=== PATIENT | female | born 1960 | race Caucasian/White ===

== ENCOUNTER 2018-09-08 11:24 | Emergency (ER) | payer MEDICAID ==
[2018-09-08] MEDS ORDERED: ONDANSETRON HCL IV 4 MG/2 ML VIAL IV ONE (11:39)
[2018-09-08] MEDS ORDERED: SODIUM CHLORIDE 0.9% 500 ML IV ONE (11:39)
[2018-09-08] MEDS ORDERED: 0.9 % SODIUM CHLORIDE 1,000 ML BAG IV ONE (11:48)
--- NOTE | 2018-09-08 11:48 | Emergency Department Record ---
History of Present Illness - General Chief complaint: Nausea, Vomiting, Diarrhea Stated complaint: NAUSEA,CONSTIPATION Time Seen by Provider: 09/08/18 11:32 Source: Patient Mode of Arrival: Ambulatory - History of Present Illness Initial comments: The patient states that she has had about 2 weeks of heartburn, bloating, nausea , and RUQ/epig abdominal pain. She has had vomiting over these 2 weeks but is not just having dry heaves as she is not eating and drinking less. Her urine is strong and has decreased in amount as well. She has chills without fevers, no URI symptoms and no urinary symptoms. These symptoms today are the same as she has had over the past 2 weeks but are more severe. She also feels constipated as her last BM was 4 days ago. Her primary care [employer]ICAL INSTRUCTOR Yamilet ordered Abdominal ultrasound done on 08-14-18 which was "unremarkable abdomen ultrasound without evidence of cholelithiasis or acute cholecystitis." Her hepatobiliary nuc med scan done on 08-21-18 showed "no evidence of cytic or common duct obstruction. Relatively LOW ejection fraction of 25%." She has been expecting a referral to a surgeon. MD complaint: Abdominal pain Onset/Timin -: Week(s) Description of Vomiting: Watery Associated Abdominal Pain: Yes Location: RUQ, Epigastric Radiation: Epigastric, RUQ Severity: Moderate Severity scale (1-10): 7 Quality: Aching, Sharp Consistency: Constant Improves with: None Worsens with: None Associated Symptoms: Denies other symptoms - Related Data Home Medications Medication Instructions Recorded Confirmed Last Taken Cyclobenzaprine HCl [Flexeril] 10 mg PO TID 09/08/18 09/08/18 09/08/18 Previous Rx's Medication Instructions Recorded Ondansetron [Zofran Odt] 4 mg PO Q8H PRN #7 tab.rapdis 09/08/18 Allergies Allergy/AdvReac Type Severity Reaction Status Date / Time cephalexin monohydrate Allergy Intermediate HIVES Verified 09/08/18 11:34 [From Keflex] Penicillins Allergy Intermediate HIVES Verified 09/08/18 11:34 tetanus immune globulin Allergy Intermediate SWELLING Verified 09/08/18 11:34 (GENERAL) Travel Screening - Travel/Exposure Within Last 30 Days Have you traveled within the last 30 days?: No Review of Systems Reviewed: No additional complaints except as noted below Constitutional: Reports: As per HPI. Denies: Chills, Fever, Malaise, Night sweats, Weakness, Weight change Eyes: Reports: As per HPI. Denies: Eye discharge, Eye pain, Photophobia, Vision change ENT: Reports: As per HPI. Denies: Congestion, Dental pain, Ear pain, Epistaxis , Hearing loss, Throat pain Respiratory: Reports: As per HPI. Denies: Cough, Dyspnea, Hemoptysis, Stridor, Wheezes Cardiovascular: Reports: As per HPI. Denies: Arrhythmia, Chest pain, Dyspnea on exertion, Edema, Murmurs, Orthopnea, Palpitations, Paroxysmal nocturnal dyspnea, Rheumatic Fever, Syncope Endocrine: Reports: As per HPI. Denies: Fatigue, Heat or cold intolerance, Polydipsia, Polyuria Gastrointestinal: Reports: As per HPI. Denies: Abdominal pain, Constipation, Diarrhea, Hematemesis, Hematochezia, Melena, Nausea, Vomiting Genitourinary: Reports: As per HPI. Denies: Abnormal menses, Discharge, Dyspareunia, Dysuria, Frequency, Hematuria, Incontinence, Retention, Urgency Musculoskeletal: Reports: As per HPI. Denies: Arthralgia, Back pain, Gout, Joint swelling, Myalgia, Neck pain Skin: Reports: As per HPI. Denies: Bruising, Change in color, Change in hair/ nails, Lesions, Pruritus, Rash Neurological: Reports: As per HPI. Denies: Abnormal gait, Confusion, Headache, Numbness, Paresthesias, Seizure, Tingling, Tremors, Vertigo, Weakness Psychiatric: Reports: As per HPI. Denies: Anxiety, Auditory hallucinations, Depression, Homicidal thoughts, Suicidal thoughts, Visual hallucinations Hematological/Lymphatic: Reports: As per HPI. Denies: Anemia, Blood Clots, Easy bleeding, Easy bruising, Swollen glands Past Medical History - SOCIAL HISTORY Smoking Status: Light tobacco smoker (<10/day) - RESPIRATORY Hx Respiratory Disorders: No - CARDIOVASCULAR Hx Cardio Disorders: Yes Hx Cardiac Cath: Yes Hx Heart Attack: Yes (1998) Hx Hypertension: Yes - NEURO Hx Neuro Disorders: Yes Hx Dizziness: Yes - GI Hx GI Disorders: No Hx Nausea/Vomiting: Yes - Hx Genitourinary Disorders: No - ENDOCRINE Hx Endocrine Disorders: No - MUSCULOSKELETAL Hx Musculoskeletal Disorders: Yes Hx Osteoporosis: Yes - PSYCH Hx Psych Problems: Yes Hx Depression: Yes - HEMATOLOGY/ONCOLOGY Hx Hematology/Oncology Disorders: No Hx Blood Transfusions: No Family Medical History Hx Cancer: Brother/Sister, Grandparents Hx Dementia: Grandparents Hx Depression: Father, Mother, Brother/Sister, Grandparents Hx Diabetes: Father Hx Heart Disease: Mother Hx HTN: Father, Mother, Brother/Sister, Grandparents Physical Exam - General General Appearance: Alert, Oriented x3, Cooperative, Mild distress - Head Head exam: Normal inspection - Eye Eye exam: Normal appearance, PERRL Pupils: Normal accommodation - ENT ENT exam: Normal exam, Mucous membranes moist, Normal external ear exam, Normal orophraynx, TM's normal bilaterally Ear exam: Normal external inspection. negative: External canal tenderness Nasal Exam: Normal inspection. negative: Discharge, Sinus tenderness Mouth exam: Normal external inspection, Tongue normal Teeth exam: Normal inspection. negative: Dental caries Throat exam: Normal inspection. negative: Tonsillar erythema, Tonsillar exudate - Neck Neck exam: Normal inspection, Full ROM. negative: Lymphadenopathy, Meningismus , Tenderness - Respiratory Respiratory exam: Normal lung sounds bilaterally. negative: Respiratory distress - Cardiovascular Cardiovascular Exam: Regular rate, Normal rhythm, Normal heart sounds - GI/Abdominal GI/Abdominal exam: Soft, Normal bowel sounds, Tenderness (RUQ and epigastric tenderness on palpation;). negative: Guarding, Rebound, Rigid - Rectal Rectal exam: Deferred - exam: Deferred - Extremities Extremities exam: Normal inspection, Full ROM, Normal capillary refill. negative: Calf tenderness, Pedal edema, Tenderness - Back Back exam: Reports: Normal inspection, Full ROM. Denies: Muscle spasm, Rash noted, Tenderness - Neurological Neurological exam: Alert, Normal gait, Oriented X3, Reflexes normal - Psychiatric Psychiatric exam: Normal affect, Normal mood - Skin Skin exam: Dry, Intact, Normal color, Warm Course Vital Signs 09/08/18 11:29 Temperature 98.0 F Pulse Rate 73 Respiratory 18 Rate Blood Pressure 145/84 Pulse Ox 98 - Reevaluation(s) Reevaluation #1: Spoke with PCP office who states the Dr. Osborn referral has been ordered but not processed. 09/08/18 11:57 09/08/18 13:[address] Osborn who requests patient to call his [place] office for an appointment to be seen tomorrow (Friday09-09-18) in his office. Reevaluation #2: Patient's discomfort has decreased from 5/10 to 3/10 and is at her level of the past 2 weeks. She is in agreement with going home and seeing Dr. Osborn in his office tomorrow. at the bedside agrees. 09/08/18 13:30 Medical Decision Making - Management Options MDM Management: Additional Work-up Planned (e.g. ADM/Transfer/OP Study) (See Dr. Osborn in his office tomorrow without fail.) - Data Complexity MDM Data: Labs Ordered and/or Reviewed, X-Ray Ordered and/or Reviewed ( Noncontrast CT Abd/Pelvis: ) - Lab Data Result diagrams: 09/08/18 11:37 09/08/18 11:37 Disposition Disposition: Discharge Clinical Impression: Colic, biliary Disposition: Home, Self-Care Condition: (1) Good Instructions: Biliary Colic (ED), Acute Nausea and Vomiting (ED) Additional Instructions: Clear liquids and push fluids. Call Dr. Osborn's office in [place] at [phone] for an appointment tomorrow in his [place] office. zofran as directed as needed for nausea. Prescriptions: Ondansetron [Zofran Odt] 4 mg PO Q8H PRN #7 tab.rapdis PRN Reason: Nausea/Vomiting Quality - Quality Measures Quality Measures: N/A - Blood Pressure Screening Does Patient Have Any of the Following: No Blood Pressure Classification: Pre-Hypertensive BP Reading Systolic Measurement: 145 Diastolic Measurement: 84 Screening for High Blood Pressure: < Pre-Hypertensive BP, F/U Documented > [ G8950] Pre-Hypertensive Follow-up Interventions: Follow-up with rescreen every year.
[2018-09-08 11:49] LABS: BASO % 0.6 % (0-6); GRAN % 61.5 % (47-80); HEMATOCRIT 41.9 % (35.0-47.0); HEMOGLOBIN 13.7 gm/dl (11.6-16.0); LYMPH % 26.9 % (16-45); MEAN CELL VOLUME 92.7 fl (81-97); MEAN CORPUSCULAR HEMOGLOBIN 30.3 pg (27-33); MEAN CORPUSCULAR HGB CONC 32.7 g/dl (32-36); MEAN PLATELET VOLUME 10.6 fl (7.4-10.4); PLATELET COUNT 274 K/uL (130-400); RED BLOOD COUNT 4.52 M/uL (3.80-5.40); RED CELL DISTRIBUTION WIDTH 13.2 % (11.5-14.5); WHITE BLOOD COUNT W/O DIFF 10.8 K/uL (4.2-12.2)
[2018-09-08 11:57] LABS: BILIRUBIN,TOTAL 0.7 mg/dL (0.2-1.0); CREATININE 1.1 mg/dL (0.5-0.9)
[2018-09-08] MEDS ORDERED: MAGNESIUM HYDROXIDE/AL HYDROX 30 ML, LIDOCAINE VISC 2% 15ML 15 ML PO ONE ×2 (12:01)
[2018-09-08 12:02] LABS: ALB/GLOB RATIO 1.7 (1.1-1.8); ALBUMIN 4.4 g/dL (4.0-5.0)
[2018-09-08 13:29] LABS: URINE APPEARANCE CLEAR; URINE BILIRUBIN NEGATIVE (NEGATIVE); URINE BLOOD TRACE-I (NEGATIVE); URINE COLOR YELLOW; URINE GLUCOSE (UA) NEGATIVE (NEGATIVE); URINE KETONE NEGATIVE (NEGATIVE); URINE LEUKOCYTE ESTERASE NEGATIVE (NEGATIVE); URINE NITRITE NEGATIVE (NEGATIVE); URINE PROTEIN NEGATIVE (NEGATIVE); URINE UROBILINOGEN 0.2 E.U./dL (0.20 - 1.00)
[2018-09-08 13:40] LABS: URINE EPITHELIAL CELLS 0 - 2 (FEW); URINE RBC 0 - 2 (NONE SEEN); URINE WBC 0 - 2 (0-2/hpf)
--- NOTE | 2018-09-10 15:06 | CT SCAN REPORT ---
EXAM: EMERGENCY CT OF THE ABDOMEN AND PELVIS WITHOUT CONTRAST HISTORY: EPIGASTRIC AND RIGHT UPPER QUADRANT PAIN FOR TWO WEEKS, NAUSEATED. TECHNIQUE: Axial CT scan of the abdomen and pelvis was performed without oral or IV contrast. Comparison: No prior CT abdomen and pelvis with which to compare. FINDINGS: No calcified gallstones seen within the gallbladder. No intrarenal calculi identified in either kidney. No hydronephrosis or hydroureter is seen with no definite ureteral calculus seen on either side and no bladder calculus evident. Evaluation of the bowel and viscera is extremely limited without oral or IV contrast. Given this limitation, no definite hepatic, splenic, adrenal, pancreatic, or renal mass identified. The uterus is tilted slightly towards the right. Mild diverticulosis left side of the colon, but no diverticulitis evident. The appendix is visualized and probably contains an appendicolith near the tip of the appendix, measuring about 1 cm in size, however, no additional to suggest acute appendicitis identified. No free intraperitoneal air or free intraperitoneal fluid evident. Very small periumbilical anterior abdominal wall hernia containing adipose tissue, but no bowel. There is a thoracolumbar levoscoliosis with some facet joint arthropathy in the lumbar spine. IMPRESSION: 1. THERE IS PROBABLY A CALCIFIED APPENDICOLITH PRESENT, BUT NO ADDITIONAL FINDINGS TO SUGGEST ACUTE APPENDICITIS EVIDENT. 2. NO DEFINITE URINARY TRACT CALCULI OR HYDRONEPHROSIS SEEN. 3. THE UTERUS IS TILTED TOWARDS THE RIGHT. 4. NO FREE AIR OR FREE FLUID EVIDENT. 5. THORACOLUMBAR LEVOSCOLIOSIS. JOB NUMBER: [id number] MTDD
== END 2018-09-08 13:45 | disposition home or self-care (01) ==
LOC: ER 11:24
DX: K80.50 Calculus of bile duct without cholangitis or cholecystitis without obstruction (principal); R11.0 Nausea; R19.7 Diarrhea, unspecified; R12 Heartburn; I10 Essential (primary) hypertension; I25.2 Old myocardial infarction; F17.210 Nicotine dependence, cigarettes, uncomplicated
CPT/HCPCS: 74176; 80053; 81001; 83690; 85025; 96361; 96374; 99284; J2405

== ENCOUNTER 2018-09-14 07:54 | Day surgery (SDC) | payer MEDICAID ==
[~2018-09-14 07:54] MED LIST: ACETAMINOPHEN 1,000 MG/100 ML BTL IV ONE; FAMOTIDINE 20MG TABLET PO ONE; MECLIZINE 25 MG TABLET PO ONE; METOCLOPRAMIDE 10 MG TABLET PO ONE
[2018-09-14] MEDS ORDERED: BUPIVACAINE 0.25% W/EPI MPF 30ML VIAL IVP ONE (07:55)
[2018-09-14] MEDS ORDERED: ROCURONIUM BROMIDE 50MG/5ML VIAL IV ONE (07:55)
[2018-09-14] MEDS ORDERED: MIDAZOLAM HCL 2MG/2ML VIAL IV ONE (07:55)
[2018-09-14] MEDS ORDERED: SUGAMMADEX SODIUM 200 MG/2 ML VIAL IV ONE (07:55)
[2018-09-14] MEDS ORDERED: FENTANYL PF 100MCG/2ML VIAL IV ONE (07:55)
[2018-09-14] MEDS ORDERED: PROPOFOL 10 MG/ML VIAL IV ONE (07:55)
[2018-09-14] MEDS ORDERED: ONDANSETRON HCL IV 4 MG/2 ML VIAL IVP ONE (07:55)
[2018-09-14] MEDS ORDERED: DEXAMETHASONE 4 MG/ML 1ML VIAL IVP ONE (07:55)
[2018-09-14] MEDS ORDERED: SUCCINYLCHOLINE 20 MG/ML 10ML IVP ONE (07:55)
[2018-09-14] MEDS ORDERED: LIDOCAINE 2% MDV (20MG/ML) 20ML VIAL IV ONE (07:55)
--- NOTE | 2018-09-15 15:29 | Operative Note ---
DATE OF SURGERY: 09/14/2018 Surgeon: Pancho Osborn DO PREOPERATIVE DIAGNOSIS: Symptomatic biliary dyskinesia. POSTOPERATIVE DIAGNOSIS: Symptomatic biliary dyskinesia. OPERATION: Laparoscopic cholecystectomy. Indication: The patient is a 58-year-old female who is having ongoing right subcostal postprandial pain. She had impaired ejection fraction on workup. We did discuss cholecystectomy versus medical management. She desired surgical intervention. Risks include but are not limited to bleeding, infection, ductal injury, possible conversion to open, postoperative bile leak. She understood this fully. PROCEDURE: Thereafter, consent was signed and questions answered. She was taken to the operating room and placed in a supine position. General anesthesia was administered per the department of anesthesia. The patient's abdomen was prepped and draped in the usual sterile fashion. The infraumbilical region was anesthetized with a total of 5 mL of 0.25% Sensorcaine with epinephrine. A 2 cm infraumbilical incision was made. This was carried down to the anterior rectus fascia. This was incised. Manuel clamps were placed on the fascial edges and brought up into the wound. Stay sutures of 0 Vicryl were placed. Posterior rectus sheath was identified and incised. The peritoneal cavity was entered bluntly. At this time, a 10 mm blunt Gin port was placed. Adequate pneumoperitoneum was established. Under direct visualization, additional 5 mm epigastric and two 5 mm right subcostal ports were placed. The gallbladder was identified in the subhepatic space. It was retracted in a cephalad and lateral direction opening up the angle of Calot. The hepatocystic triangle was thoroughly dissected out. There was no aberrant anatomy, no posterior ductal structures. The cystic duct and cystic artery were clearly identified. These were doubly clipped and cut in a standard fashion. Gallbladder was then taken off the liver bed with Leonard harmonic. This was extracted through the umbilical port. Right upper quadrant was rechecked and found to be hemostatic. No bleeding. No bile leak. No bowel injury noted. The patient was leveled out. The pneumoperitoneum was released. All ports were removed. The fascia was closed with 0 Vicryl in a [id number] fashion. The skin at all ports was closed with 4-0 Vicryl. The patient was taken to the recovery room in satisfactory condition. FINDINGS AT THE TIME OF SURGERY: Chronic cholecystitis. CC: ANCA Bradford
== END 2018-09-14 11:45 | disposition home or self-care (01) ==
LOC: SUR 07:54
PROVIDERS: ATTEND Surgery
DX: K82.8 Other specified diseases of gallbladder (principal); I10 Essential (primary) hypertension; E78.00 Pure hypercholesterolemia, unspecified; I25.2 Old myocardial infarction; K21.9 Gastro-esophageal reflux disease without esophagitis; F17.210 Nicotine dependence, cigarettes, uncomplicated
CPT/HCPCS: J0330; J2405; J3490

== ENCOUNTER 2019-05-01 07:30 | Emergency (ER) | payer SELFPAY ==
[2019-05-01] MEDS ORDERED: METHYLPREDNISOLONE PF 125MG/VIAL IM ONE (07:53)
[2019-05-01] MEDS ORDERED: IPRATROPIUM/ALBUTEROL (0.5MG/3MG) NEB INH ONE (07:53)
--- NOTE | 2019-05-01 08:47 | Emergency Department Record ---
History of Present Illness - General Chief Complaint: Cough Stated Complaint: COUGH, CONGESTION, SINUS PROBLEMS Time Seen by Provider: 05/01/19 07:49 Source: Patient, Family Mode of Arrival: Ambulatory Limitations: No limitations - History of Present Illness Initial Comments: pt has been sick for 9 days and is getting worse. she has had a productive co ugh, fevers, chills, sob, coughing so hard she gets lightheaded and green rhinitis MD Complaint: Cough, Shortness of breath Onset/Timin Severity: Mild Consistency: Getting worse Improves With: Nothing Worsens With: Exertion Context: Recent URI Associated Symptoms: Cough - Related Data Previous Rx's Medication Instructions Recorded Albuterol Sulfate [Ventolin Hfa] 1 - 2 puff IH .EVERY 4-6 HOURS PRN 05/01/19 #1 inhaler Azithromycin [Zithromax] 250 mg PO DAILY #6 tab 05/01/19 Allergies Allergy/AdvReac Type Severity Reaction Status Date / Time cephalexin monohydrate Allergy Intermediate HIVES Verified 05/01/19 07:35 [From Keflex] Penicillins Allergy Intermediate HIVES Verified 05/01/19 07:35 tetanus immune globulin Allergy Intermediate SWELLING Verified 05/01/19 07:35 (GENERAL) sulfamethoxazole Allergy HIVES Verified 05/01/19 07:35 [From Septra] trimethoprim [From Julra] Allergy HIVES Verified 05/01/19 07:35 Travel Screening - Travel/Exposure Within Last 30 Days Have you traveled within the last 30 days?: No - Travel/Exposure Within Last Year Have you traveled outside the [place] in the last year?: No - Additonal Travel Details Have you been exposed to anyone with a communicable illness?: No - Travel Symptoms Symptom Screening: None Review of Systems Reviewed: No additional complaints except as noted below Constitutional: Reports: As per HPI. Denies: Chills, Fever, Malaise, Night sweats, Weakness, Weight change Eyes: Reports: As per HPI. Denies: Eye discharge, Eye pain, Photophobia, Vision change ENT: Reports: As per HPI, Congestion. Denies: Dental pain, Ear pain, Epistaxis, Hearing loss, Throat pain Respiratory: Reports: As per HPI, Cough, Dyspnea. Denies: Hemoptysis, Stridor, Wheezes Cardiovascular: Reports: As per HPI. Denies: Arrhythmia, Chest pain, Dyspnea on exertion, Edema, Murmurs, Orthopnea, Palpitations, Paroxysmal nocturnal dyspnea, Rheumatic Fever, Syncope Endocrine: Reports: As per HPI. Denies: Fatigue, Heat or cold intolerance, Polydipsia, Polyuria Gastrointestinal: Reports: As per HPI. Denies: Abdominal pain, Constipation, Diarrhea, Hematemesis, Hematochezia, Melena, Nausea, Vomiting Genitourinary: Reports: As per HPI. Denies: Abnormal menses, Discharge, Dyspareunia, Dysuria, Frequency, Hematuria, Incontinence, Retention, Urgency Musculoskeletal: Reports: As per HPI. Denies: Arthralgia, Back pain, Gout, Joint swelling, Myalgia, Neck pain Skin: Reports: As per HPI. Denies: Bruising, Change in color, Change in hair/nails, Lesions, Pruritus, Rash Neurological: Reports: As per HPI. Denies: Abnormal gait, Confusion, Headache, Numbness, Paresthesias, Seizure, Tingling, Tremors, Vertigo, Weakness Psychiatric: Reports: As per HPI. Denies: Anxiety, Auditory hallucinations, Depression, Homicidal thoughts, Suicidal thoughts, Visual hallucinations Hematological/Lymphatic: Reports: As per HPI. Denies: Anemia, Blood Clots, Easy bleeding, Easy bruising, Swollen glands Past Medical History - SOCIAL HISTORY Smoking Status: Light tobacco smoker (<10/day) Alcohol Use: None Drug Use: None - RESPIRATORY Hx Respiratory Disorders: No - CARDIOVASCULAR Hx Cardio Disorders: Yes Hx Cardiac Cath: Yes Hx Heart Attack: Yes (1998) Hx Hypertension: Yes (on meds good control) - NEURO Hx Neuro Disorders: Yes Hx Dizziness: Yes (vertigo) - GI Hx GI Disorders: Yes Hx Abdominal Pain: Yes Hx Reflux: Yes Hx Nausea/Vomiting: Yes - Hx Genitourinary Disorders: No - ENDOCRINE Hx Endocrine Disorders: No - MUSCULOSKELETAL Hx Musculoskeletal Disorders: Yes Hx Osteoporosis: Yes (questionable) - PSYCH Hx Psych Problems: Yes Hx Anxiety: Yes Hx Depression: Yes - HEMATOLOGY/ONCOLOGY Hx Hematology/Oncology Disorders: No Hx Blood Transfusions: No Family Medical History Any Significant Family History?: Yes Hx Cancer: Brother/Sister, Grandparents Hx Dementia: Grandparents Hx Depression: Father, Mother, Brother/Sister, Grandparents Hx Diabetes: Father Hx Heart Disease: Mother Hx HTN: Father, Mother, Brother/Sister, Grandparents Physical Exam - General General Appearance: Alert, Oriented x3, Cooperative, Mild distress - Head Head exam: Normal inspection - Eye Eye exam: Normal appearance, PERRL, EOMI Pupils: Normal accommodation - ENT ENT exam: Normal exam, Mucous membranes moist, Normal external ear exam, Normal orophraynx Ear exam: Normal external inspection. negative: External canal tenderness Nasal Exam: Normal inspection. negative: Discharge, Sinus tenderness Mouth exam: Normal external inspection, Tongue normal Teeth exam: Normal inspection. negative: Dental caries Throat exam: Normal inspection. negative: Tonsillar erythema, Tonsillar exudate - Neck Neck exam: Normal inspection, Full ROM. negative: Tenderness - Respiratory Respiratory exam: Rales (l lung base). negative: Respiratory distress - Cardiovascular Cardiovascular Exam: Regular rate, Normal rhythm, Normal heart sounds - GI/Abdominal GI/Abdominal exam: Soft, Normal bowel sounds. negative: Tenderness - Rectal Rectal exam: Deferred - exam: Deferred - Extremities Extremities exam: Normal inspection, Full ROM, Normal capillary refill. negative: Tenderness - Back Back exam: Reports: Normal inspection, Full ROM. Denies: Muscle spasm, Rash noted, Tenderness - Neurological Neurological exam: Alert, CN II-XII intact, Normal gait, Oriented X3 - Psychiatric Psychiatric exam: Normal affect, Normal mood - Skin Skin exam: Dry, Intact, Normal color, Warm Course Vital Signs 05/01/19 05/01/19 07:38 08:10 Temperature 97.9 F Pulse Rate 89 108 H Respiratory 18 18 Rate Blood Pressure 135/79 Pulse Ox 93 L 99 Disposition Disposition: Discharge Clinical Impression: Bronchitis Pneumonia Qualifiers: Pneumonia type: due to unspecified organism Laterality: left Lung location: lower lobe of lung Qualified Code(s): J18.1 - Lobar pneumonia, unspecified organism Disposition: Home, Self-Care Condition: (1) Good Instructions: Pneumonitis (ED), Acute Bronchitis (ED) Additional Instructions: follow up with family doctor. return sooner if worse. stop smoking Prescriptions: Albuterol Sulfate [Ventolin Hfa] 1 - 2 puff IH .EVERY 4-6 HOURS PRN #1 inhaler PRN Reason: Difficulty In Breathing Azithromycin [Zithromax] 250 mg PO DAILY #6 tab Quality - Quality Measures Quality Measures: N/A - Blood Pressure Screening Does Patient Have Any of the Following: No Blood Pressure Classification: Pre-Hypertensive BP Reading Systolic Measurement: 135 Diastolic Measurement: 79 Screening for High Blood Pressure: < Pre-Hypertensive BP, F/U Documented > [G8950] Pre-Hypertensive Follow-up Interventions: Follow-up with rescreen every year.
--- NOTE | 2019-05-03 06:35 | RADIOLOGY REPORT ---
DATE: 05/01/2019 at 0825. EXAM: CHEST, TWO VIEWS. HISTORY: COUGH AND FEVER. TECHNIQUE: Upright PA and lateral views of the chest. COMPARISON: Low-dose CT of the chest dated 03/30/2018. FINDINGS: The heart is not enlarged. No pulmonary venous hypertension. The thoracic aorta is tortuous and atherosclerotic. No new lung consolidation, costophrenic angle blunting, or pneumothorax. Mild bi-apical pleural and parenchymal scarring is present. Minimal reticular opacity prominence within the lung bases likely relates to chronic interstitial change. There are degenerative changes of the visualized spine. S-shaped thoracolumbar scoliosis is redemonstrated. IMPRESSION: 1. NO CONVINCING RADIOGRAPHIC EVIDENCE OF ACUTE CARDIOPULMONARY DISEASE. 2. MINOR BI-APICAL PLEURAL AND PARENCHYMAL SCARRING. MINOR RETICULAR OPACITY PROMINENCE QUESTIONED IN THE LUNG BASES LIKELY RELATING TO MILD CHRONIC INTERSTITIAL CHANGE. Job Number: [id number] MTDD
== END 2019-05-01 09:13 | disposition home or self-care (01) ==
LOC: ER 07:30
DX: J18.1 Lobar pneumonia, unspecified organism (principal); J20.9 Acute bronchitis, unspecified; I10 Essential (primary) hypertension; I25.2 Old myocardial infarction; F17.210 Nicotine dependence, cigarettes, uncomplicated
CPT/HCPCS: 71046; 94640; 96372; 99283; 99284; J2930